=== PATIENT | female | born 1965 | race African-American/Black ===

== ENCOUNTER 2021-08-14 18:23 | Inpatient (IN) ==
[2021-08-14] MEDS ORDERED: LABETALOL 20 MG/4 ML SYRINGE IV STA (19:01)
[2021-08-14] MEDS ORDERED: SODIUM CHLORIDE 0.9% 100 ML IV ONE (19:27)
[2021-08-14] MEDS ORDERED: MORPHINE 2 MG/1 ML SYRINGE ONE (19:44)
[2021-08-14] MEDS ORDERED: ONDANSETRON 4 MG/2 ML VIAL ONE (19:44)
[2021-08-14] MEDS ORDERED: MORPHINE 2 MG/1 ML SYRINGE IV STA (19:47)
[2021-08-14] MEDS ORDERED: ONDANSETRON 4 MG/2 ML VIAL IV STA (19:47)
[2021-08-14 19:50] LABS: Basophils % 0.2 % (0.0-0.8); Eosinophils % 0.2 % (0.00-10.9); Hematocrit 44.2 VOL% (35.7-47.0); Hemoglobin 13.9 GM/DL (12.0-16.0); Immature Granulocytes % 0.6 %; Immature Granulocytes Absolute 0.04 #; Lymphocytes # 0.8 10*3/uL (1.4-4.0); Lymphocytes % 12.1 % (21.3-54.2); Mean Corpuscular HGB Conc 31.4 GM/DL (32-36); Mean Corpuscular Volume 86.8 FL (87-102); Monocytes % 6.2 % (1.7-12.7); Neutrophils % 80.7 % (38.7-73.9); Red Blood Count 5.09 MC/CUMM (3.8-5.5); Red Cell Distribution Width 15.7 % (9.3-17.3); White Blood Count 6.4 T/CUMM (4-12)
[2021-08-14 19:52] LABS: Platelet Count 10 T/CUMM (130-400)
[2021-08-14] MEDS ORDERED: LORazepam 2 MG/1 ML VIAL ONE (19:57)
[2021-08-14] MEDS ORDERED: LORazepam 2 MG/1 ML VIAL IV STA (20:00)
[2021-08-14 20:05] LABS: Alanine Aminotransferase 41 U/L (13-56); Albumin 3.3 G/DL (3.4-5.0); Alkaline Phosphatase 119 U/L (45-117); Aspartate Amino Transferase 33 U/L (0-37); Blood Urea Nitrogen 18 MG/DL (7-18); Calcium 9.3 MG/DL (8.5-10.1); Carbon Dioxide 23 MMOL/L (21-32); Estimated Glom Filtration Rate 48 ML/MIN; Glucose 127 MG/DL (74-106); Osmolality,Calculated 286.1 MOS/KG (273-304); Potassium 3.8 MMOL/L (3.5-5.1); Sodium 142 MMOL/L (136-145); Total Protein 6.6 G/DL (6.4-8.2)
[2021-08-14 20:06] LABS: Band Neutrophils 2 % (0-10); Lymphocytes 12 % (20-55); Segmented Neutrophils 84 % (50-85); Total Cells Counted 100
[2021-08-14 20:07] LABS: Schistocytes Slight; Spherocytes Slight
[2021-08-14 20:08] LABS: Platelet Estimate Decreased
[2021-08-14] MEDS ORDERED: niCARdipine 25 MG/10 ML VIAL IV ONE (20:08)
[2021-08-14 20:09] LABS: Hypochromasia Slight; Microcytosis 1+
[2021-08-14] MEDS: niCARdipine INJ 25 MG in SODIUM CHLORIDE 0.9% 240 ML IV SCH (20:15)
[2021-08-14] MEDS ORDERED: hydrALAZINE 20 MG/1 ML VIAL ONE (20:27)
[2021-08-14] MEDS ORDERED: hydrALAZINE 20 MG/1 ML VIAL IV STA (20:28)
[2021-08-14] MEDS ORDERED: amLODIPine 5 MG TABLET PO STA (20:29)
[2021-08-14] MEDS ORDERED: ONDANSETRON 4 MG/2 ML VIAL IV PRN (20:37)
[2021-08-14] MEDS ORDERED: ALBUTEROL 2.5 MG/3 ML NEB RESP TX PRN (20:37)
[2021-08-14] MEDS ORDERED: MORPHINE 2 MG/1 ML SYRINGE IV PRN (20:37)
[2021-08-14] MEDS ORDERED: NICOTINE 21 MG/24 HR PATCH TRANSDERM PRN (20:37)
[2021-08-14] MEDS ORDERED: SODIUM CHLORIDE 0.9% 1,000 ML IV PRN (20:37)
[2021-08-14] MEDS: PANTOPRAZOLE 40 MG VIAL IV SCH (21:03)
[2021-08-14 21:07] LABS: Basophils % 0.2 % (0.0-0.8); Hematocrit 44.9 VOL% (35.7-47.0); Hemoglobin 13.9 GM/DL (12.0-16.0); Immature Granulocytes % 0.4 %; Immature Granulocytes Absolute 0.04 #; Lymphocytes # 0.6 10*3/uL (1.4-4.0); Lymphocytes % 5.7 % (21.3-54.2); Mean Corpuscular Volume 87.2 FL (87-102); Monocytes % 5.4 % (1.7-12.7); NRBC # 0.02 10*3/uL; Neutrophils % 88.3 % (38.7-73.9); Platelet Count 60 T/CUMM (130-400); Red Blood Count 5.15 MC/CUMM (3.8-5.5); Red Cell Distribution Width 15.7 % (9.3-17.3); White Blood Count 9.7 T/CUMM (4-12)
[2021-08-14 21:20] LABS: Folate 12.16 NG/ML (5.38-24.0); Vitamin B12 1132 PG/ML (211-911)
[2021-08-14 21:22] LABS: Bacteria,Urine Occasional /HPF (Few); Bilirubin,Urine Negative (Negative); Blood, Urine Negative (Negative); Glucose,Urine (UA) 50 mg/dL (Negative); Hyaline Casts,Urine 8 /LPF (0-3); Ketones,Urine 5 mg/dL (Negative); Mucus,Urine Occasional /LPF (Occasional); Nitrite,Urine Negative (Negative); Protein,Urine >=500 MG/DL; RBC,Urine 2 /HPF (0-4); Squamous Epithelial Cell,Urine Occasional /HPF (0-10); Urine Appearance CLEAR (Clear); Urine Color Yellow (Yellow); Urine Specific Gravity 1.017 (1.001-1.035); Urine Urobilinogen < 2.0 EU/DL (0.2-1.0)
[2021-08-14 21:27] LABS: Barbiturates Screen,Urine Negative (Negative); Benzodiazepines Screen,Urine Positive (Negative); Cannabinoid Screen,Urine Positive (Negative); Opiate Screen,Urine Positive (Negative); Phencyclidine Screen,Urine Negative (Negative)
[2021-08-14 21:39] VITALS: BP 167/89
[2021-08-14] MEDS ORDERED: LORazepam 2 MG/1 ML VIAL IV PRN (21:46)
[2021-08-14] MEDS: SODIUM CHLORIDE 0.9% 1,000 ML IV SCH (22:13)
[2021-08-14 22:14] LABS: Sedimentation Rate-Westergren 12 MM/HR (0-30)
[2021-08-14] MEDS ORDERED: LABETALOL 20 MG/4 ML SYRINGE IV ONE (22:18)
[2021-08-14] MEDS ORDERED: ACETAMINOPHEN 650 MG SUPP RECTAL PRN (23:30)
[2021-08-15] MEDS ORDERED: LORazepam 2 MG/1 ML VIAL ONE (00:41)
[2021-08-15] MEDS: niCARdipine INJ 25 MG in SODIUM CHLORIDE 0.9% 240 ML IV SCH ×2 (00:48→21:30)
[2021-08-15 04:46] LABS: Basophils % 0.3 % (0.0-0.8); Hemoglobin 13.4 GM/DL (12.0-16.0); Immature Granulocytes % 0.3 %; Immature Granulocytes Absolute 0.02 #; Lymphocytes # 1.3 10*3/uL (1.4-4.0); Lymphocytes % 17.5 % (21.3-54.2); Mean Corpuscular HGB Conc 30.5 GM/DL (32-36); Monocytes % 13.9 % (1.7-12.7); Platelet Count 50 T/CUMM (130-400); Red Blood Count 4.89 MC/CUMM (3.8-5.5); Red Cell Distribution Width 15.9 % (9.3-17.3); White Blood Count 7.3 T/CUMM (4-12)
[2021-08-15 05:04] LABS: Albumin 3.1 G/DL (3.4-5.0); Calcium 8.9 MG/DL (8.5-10.1); Potassium 3.4 MMOL/L (3.5-5.1); Total Protein 6.4 G/DL (6.4-8.2)
[2021-08-15 05:16] LABS: Hypochromasia 1+; Ovalocytes 1+; Platelet Estimate Decreased
[2021-08-15] MEDS: SODIUM CHLORIDE 0.9% 1,000 ML IV SCH (06:16)
[2021-08-15] MEDS: ACETAMINOPHEN 325 MG TABLET PO PRN ×2 (08:20→21:28)
[2021-08-15] MEDS: POTASSIUM CHLORIDE 20 MEQ TABLET PO PRN ×3 (09:44→14:16)
[2021-08-15] MEDS ORDERED: hydrALAZINE 20 MG/1 ML VIAL IV PRN (11:12)
[2021-08-15] MEDS ORDERED: METOPROLOL SUCCINATE XL 25 MG TABLET PO SCH (11:14)
[2021-08-15] MEDS: amLODIPine 10 MG TABLET PO SCH (11:25)
[2021-08-15] MEDS: ISOSORBIDE MONONITRATE 30 MG TABLET PO SCH (12:11)
[2021-08-15] MEDS: OXYBUTYNIN 5 MG TABLET PO SCH (12:11)
[2021-08-15] MEDS: SERTRALINE 100 MG TABLET PO SCH (12:11)
[2021-08-15] MEDS: GABAPENTIN 600 MG TABLET PO SCH ×2 (14:15→21:29)
[2021-08-15] MEDS: hydrALAZINE 25 MG TABLET PO SCH ×2 (14:15→21:28)
[2021-08-15] MEDS: PANTOPRAZOLE 40 MG VIAL IV SCH (21:29)
[2021-08-16 04:47] LABS: Basophils % 0.5 % (0.0-0.8); Eosinophils # 0.1 10*3/uL (0.0-0.87); Eosinophils % 1.7 % (0.00-10.9); Hematocrit 39.2 VOL% (35.7-47.0); Hemoglobin 12.1 GM/DL (12.0-16.0); Immature Granulocytes % 0.5 %; Immature Granulocytes Absolute 0.02 #; Lymphocytes # 1.2 10*3/uL (1.4-4.0); Lymphocytes % 28.9 % (21.3-54.2); Mean Corpuscular HGB Conc 30.9 GM/DL (32-36); Mean Corpuscular Volume 89.9 FL (87-102); Monocytes % 13.4 % (1.7-12.7); Platelet Count 56 T/CUMM (130-400); Red Blood Count 4.36 MC/CUMM (3.8-5.5); Red Cell Distribution Width 15.8 % (9.3-17.3)
[2021-08-16 05:08] LABS: Calcium 8.5 MG/DL (8.5-10.1); Potassium 4.1 MMOL/L (3.5-5.1)
[2021-08-16 05:31] LABS: Hypochromasia 1+; Microcytosis 1+; Ovalocytes Slight; Platelet Estimate Decreased
[2021-08-16] MEDS: OXYBUTYNIN 5 MG TABLET PO SCH (08:42)
[2021-08-16] MEDS: hydrALAZINE 25 MG TABLET PO SCH ×2 (08:42→14:06)
[2021-08-16] MEDS: amLODIPine 10 MG TABLET PO SCH (08:42)
[2021-08-16] MEDS: SERTRALINE 100 MG TABLET PO SCH (08:42)
[2021-08-16] MEDS: GABAPENTIN 600 MG TABLET PO SCH ×2 (08:43→14:06)
[2021-08-16] MEDS: ISOSORBIDE MONONITRATE 30 MG TABLET PO SCH (08:43)
[2021-08-16] MEDS ORDERED: METOPROLOL SUCCINATE XL 50 MG TABLET PO SCH (09:00)
[2021-08-16] MEDS ORDERED: INFLUENZA VIRUS VACCINE 0.5 ML SYRINGE IM ONE (13:16)
[2021-08-17 09:49] LABS: Hemoglobin A1 (Alkaline) 97.7 % (96.5-98.5); Hemoglobin A2 (Alkaline) 2.3 % (1.5-3.5)
== END 2021-08-16 14:30 | disposition home or self-care (01) | DRG 305 ==
LOC: EDBD → EDUNIT# → N.ED 18:23 → N.EDINP 20:37 → N.ICU 21:18
PROVIDERS: ADMIT Internal Medicine; ATTEND Internal Medicine

== ENCOUNTER 2022-02-22 09:00 | Inpatient (IN) ==
[2022-02-22] MEDS ORDERED: SODIUM CHLORIDE 0.9% 1,000 ML IV STA (09:25)
[2022-02-22] MEDS ORDERED: cefTRIAXone 1,000 MG in SODIUM CHLORIDE 0.9% 100 ML IV STA (09:41)
[2022-02-22 09:55] LABS: Basophils % 0.4 % (0.0-0.8); Eosinophils % 0.4 % (0.00-10.9); Hematocrit 35.5 VOL% (35.7-47.0); Hemoglobin 11.1 GM/DL (12.0-16.0); Immature Granulocytes % 3.4 %; Immature Granulocytes Absolute 0.26 #; Mean Corpuscular HGB Conc 31.3 GM/DL (32-36); Mean Corpuscular Volume 83.9 FL (87-102); Monocytes % 13.2 % (1.7-12.7); Neutrophils % 69.6 % (38.7-73.9); Red Blood Count 4.23 MC/CUMM (3.8-5.5); Red Cell Distribution Width 16.5 % (9.3-17.3); White Blood Count 7.6 T/CUMM (4-12)
[2022-02-22 09:59] LABS: Platelet Count 72 T/CUMM (130-400)
[2022-02-22 10:12] LABS: Platelet Estimate Decreased
[2022-02-22 10:21] LABS: Alanine Aminotransferase 20 U/L (13-56); Albumin 2.5 G/DL (3.4-5.0); Alkaline Phosphatase 88 U/L (45-117); Aspartate Amino Transferase 15 U/L (0-37); Bilirubin,Total < 0.39 MG/DL (0.20-1.00); Blood Urea Nitrogen 25 MG/DL (7-18); Calcium 9.3 MG/DL (8.5-10.1); Carbon Dioxide 23 MMOL/L (21-32); Chloride 105 MMOL/L (98-107); Estimated Glom Filtration Rate 42 ML/MIN; Glucose 103 MG/DL (74-106); Potassium 3.2 MMOL/L (3.5-5.1); Sodium 136 MMOL/L (136-145)
[2022-02-22 10:33] LABS: Bacteria,Urine Occasional /HPF (Few); Mucus,Urine Occasional /LPF (Occasional); RBC,Urine 4 /HPF (0-4); Squamous Epithelial Cell,Urine Occasional /HPF (0-10); Urine Appearance Clear (Clear); Urine Color Yellow (Yellow)
[2022-02-22 10:34] LABS: Bilirubin,Urine Small mg/dL (Negative); Blood, Urine Trace mg/dL (Negative); Glucose,Urine (UA) Negative (Negative); Ketones,Urine Negative (Negative); Nitrite,Urine Negative (Negative); Protein,Urine >=300 mg/dL (Negative); Urine Urobilinogen 0.2 eU/dL (<2.0)
[2022-02-22] MEDS ORDERED: GLUCAGON 1 MG VIAL IM PRN (14:41)
[2022-02-22] MEDS ORDERED: DEXTROSE 10% 250 ML BAG IV PRN (14:41)
[2022-02-22] MEDS ORDERED: ACETAMINOPHEN 325 MG TABLET PO PRN (14:41)
[2022-02-22] MEDS ORDERED: ONDANSETRON 4 MG/2 ML VIAL IV PRN (14:41)
[2022-02-22] MEDS ORDERED: SODIUM CHLORIDE 0.9% 1,100 ML IV ONE (14:51)
[2022-02-22] MEDS: SODIUM CHLORIDE 0.9% 1,000 ML IV SCH ×2 (14:55→20:03)
[2022-02-22] MEDS: PIPERACILLIN/TAZOBACTAM 3,375 MG in SODIUM CHLORIDE 0.9% 100 ML IV SCH ×2 (15:37→23:11)
[2022-02-22] MEDS: HYDROCORTISONE 100 MG VIAL IV SCH ×2 (15:59→20:03)
[2022-02-22] MEDS: INSULIN LISPRO 100 UNIT/ML SUBCUT SCH ×2 (17:30→21:48)
[2022-02-22] MEDS: ASPIRIN 325 MG TABLET PO SCH (20:03)
[2022-02-22] MEDS: GABAPENTIN 300 MG CAPSULE PO SCH (20:03)
[2022-02-22] MEDS: levETIRAcetam 500 MG TABLET PO SCH (20:03)
[2022-02-22] MEDS ORDERED: ENOXAPARIN 80 MG/0.8 ML SYRINGE SUBCUT ONE (22:27)
[2022-02-22] MEDS ORDERED: NITROGLYCERIN SL 0.4 MG TABLET SL PRN (22:28)
[2022-02-23] MEDS: SODIUM CHLORIDE 0.9% 1,000 ML IV SCH ×2 (00:05→06:15)
[2022-02-23 04:38] LABS: Basophils % 0.3 % (0.0-0.8); Hematocrit 32.6 VOL% (35.7-47.0); Immature Granulocytes Absolute 0.32 #; Lymphocytes # 0.7 10*3/uL (1.4-4.0); Lymphocytes % 10.8 % (21.3-54.2); Mean Corpuscular HGB Conc 30.7 GM/DL (32-36); Mean Corpuscular Volume 86.7 FL (87-102); Monocytes # 0.6 10*3/uL (0.11-0.8); Monocytes % 9.8 % (1.7-12.7); Neutrophils % 74.1 % (38.7-73.9); Platelet Count 69 T/CUMM (130-400); Red Blood Count 3.76 MC/CUMM (3.8-5.5); Red Cell Distribution Width 16.6 % (9.3-17.3); White Blood Count 6.4 T/CUMM (4-12)
[2022-02-23 05:08] LABS: Alanine Aminotransferase 17 U/L (13-56); Albumin 2.1 G/DL (3.4-5.0); Alkaline Phosphatase 73 U/L (45-117); Aspartate Amino Transferase 17 U/L (0-37); Bilirubin,Total < 0.39 MG/DL (0.20-1.00); Blood Urea Nitrogen 24 MG/DL (7-18); Calcium 9.2 MG/DL (8.5-10.1); Carbon Dioxide 16 MMOL/L (21-32); Chloride 110 MMOL/L (98-107); Estimated Glom Filtration Rate 40 ML/MIN; Glucose 138 MG/DL (74-106); Osmolality,Calculated 278.8 MOS/KG (273-304); Potassium 3.8 MMOL/L (3.5-5.1); Sodium 137 MMOL/L (136-145)
[2022-02-23] MEDS: PIPERACILLIN/TAZOBACTAM 3,375 MG in SODIUM CHLORIDE 0.9% 100 ML IV SCH ×3 (06:15→23:22)
[2022-02-23] MEDS: PANTOPRAZOLE 40 MG VIAL IV SCH (06:15)
[2022-02-23] MEDS: INSULIN LISPRO 100 UNIT/ML SUBCUT SCH ×4 (08:08→22:34)
[2022-02-23] MEDS: HYDROCORTISONE 100 MG VIAL IV SCH ×2 (08:43→20:58)
[2022-02-23] MEDS: ASPIRIN 325 MG TABLET PO SCH (08:44)
[2022-02-23] MEDS: SERTRALINE 100 MG TABLET PO SCH (08:44)
[2022-02-23] MEDS: levETIRAcetam 500 MG TABLET PO SCH ×2 (08:44→20:58)
[2022-02-23] MEDS ORDERED: INDOCYANINE GREEN 25 MG VIAL IV ONE (09:02)
[2022-02-23] MEDS: GABAPENTIN 300 MG CAPSULE PO SCH ×3 (09:37→20:58)
[2022-02-23] MEDS: ELTROMBOPAG 75 MG PO SCH (09:37)
[2022-02-23 10:25] LABS: INR 1.2; Partial Thromboplastin Time 37.4 SECS (23.8-32.1)
[2022-02-23] MEDS: SODIUM BICARB INJ 150 MEQ in STERILE WATER INJ 850 ML IV SCH ×2 (13:06→22:34)
[2022-02-24 05:11] LABS: Basophils % 0.3 % (0.0-0.8); Eosinophils % 0.2 % (0.00-10.9); Hematocrit 29.2 VOL% (35.7-47.0); Immature Granulocytes % 8.8 %; Immature Granulocytes Absolute 0.52 #; Lymphocytes # 0.7 10*3/uL (1.4-4.0); Lymphocytes % 11.9 % (21.3-54.2); Mean Corpuscular HGB Conc 30.8 GM/DL (32-36); Mean Corpuscular Volume 85.1 FL (87-102); Monocytes # 0.6 10*3/uL (0.11-0.8); Monocytes % 10.5 % (1.7-12.7); Neutrophils % 68.3 % (38.7-73.9); Platelet Count 113 T/CUMM (130-400); Red Blood Count 3.43 MC/CUMM (3.8-5.5); Red Cell Distribution Width 16.8 % (9.3-17.3); White Blood Count 5.9 T/CUMM (4-12)
[2022-02-24 05:23] LABS: Calcium 8.8 MG/DL (8.5-10.1); Potassium 3.4 MMOL/L (3.5-5.1)
[2022-02-24 05:33] LABS: Band Neutrophils 2 % (0-10); Hypersegmented Neutrophil SLIGHT; Lymphocytes 13 % (20-55); Microcytosis 1+; Myelocytes 2 %; Total Cells Counted 100
[2022-02-24 05:34] LABS: Hypochromia Slight; Ovalocytes Few; Platelet Estimate Decreased
[2022-02-24] MEDS: PANTOPRAZOLE 40 MG VIAL IV SCH (06:01)
[2022-02-24] MEDS: PIPERACILLIN/TAZOBACTAM 3,375 MG in SODIUM CHLORIDE 0.9% 100 ML IV SCH ×3 (06:01→23:59)
[2022-02-24] MEDS: INSULIN LISPRO 100 UNIT/ML SUBCUT SCH ×4 (07:06→21:11)
[2022-02-24] MEDS: SODIUM BICARB INJ 150 MEQ in STERILE WATER INJ 850 ML IV SCH ×2 (09:24→21:10)
[2022-02-24] MEDS: ELTROMBOPAG 75 MG PO SCH (09:26)
[2022-02-24] MEDS: GABAPENTIN 300 MG CAPSULE PO SCH ×3 (09:27→21:07)
[2022-02-24] MEDS: levETIRAcetam 500 MG TABLET PO SCH ×2 (11:23→21:07)
[2022-02-24] MEDS: ASPIRIN 325 MG TABLET PO SCH (11:24)
[2022-02-24] MEDS: HYDROCORTISONE 100 MG VIAL IV SCH (11:24)
[2022-02-24] MEDS: SERTRALINE 100 MG TABLET PO SCH (13:15)
[2022-02-24] MEDS: ATORVASTATIN 80 MG TABLET PO SCH (13:18)
[2022-02-24] MEDS: amLODIPine 10 MG TABLET PO SCH (13:18)
[2022-02-24] MEDS: carvediloL 12.5 MG TABLET PO SCH (16:44)
[2022-02-24] MEDS: HYDROCORTISONE 10 MG TABLET PO SCH (21:07)
[2022-02-25 05:29] LABS: Basophils % 0.4 % (0.0-0.8); Eosinophils # 0.1 10*3/uL (0.0-0.87); Eosinophils % 0.7 % (0.00-10.9); Hematocrit 29.6 VOL% (35.7-47.0); Hemoglobin 9.4 GM/DL (12.0-16.0); Immature Granulocytes % 10.4 %; Immature Granulocytes Absolute 0.72 #; Lymphocytes # 0.9 10*3/uL (1.4-4.0); Lymphocytes % 12.8 % (21.3-54.2); Mean Corpuscular HGB Conc 31.8 GM/DL (32-36); Mean Corpuscular Volume 84.3 FL (87-102); Mean Platelet Volume 12.1 FL (9.6-12.0); Monocytes # 0.6 10*3/uL (0.11-0.8); Neutrophils % 66.7 % (38.7-73.9); Platelet Count 119 T/CUMM (130-400); Red Blood Count 3.51 MC/CUMM (3.8-5.5); Red Cell Distribution Width 16.7 % (9.3-17.3); White Blood Count 6.9 T/CUMM (4-12)
[2022-02-25] MEDS: PANTOPRAZOLE 40 MG VIAL IV SCH (05:49)
[2022-02-25 05:51] LABS: Calcium 9.1 MG/DL (8.5-10.1); Osmolality,Calculated 280.4 MOS/KG (273-304); Potassium 3.4 MMOL/L (3.5-5.1)
[2022-02-25] MEDS ORDERED: INDOCYANINE GREEN 25 MG VIAL IV ONE (06:00)
[2022-02-25 06:04] LABS: Band Neutrophils 1 % (0-10); Lymphocytes 12 % (20-55); Metamyelocytes 3 %; Total Cells Counted 100
[2022-02-25 06:05] LABS: Hypersegmented Neutrophil SLIGHT; Hypochromia Slight; Microcytosis 1+; Ovalocytes Slight
[2022-02-25 06:06] LABS: Platelet Estimate Adequate; Tear Drop Cells Slight
[2022-02-25] MEDS: PIPERACILLIN/TAZOBACTAM 3,375 MG in SODIUM CHLORIDE 0.9% 100 ML IV SCH ×3 (07:30→23:16)
[2022-02-25] MEDS: HYDROCORTISONE 10 MG TABLET PO SCH ×2 (10:10→21:25)
[2022-02-25] MEDS: INSULIN LISPRO 100 UNIT/ML SUBCUT SCH ×4 (10:10→21:26)
[2022-02-25] MEDS: carvediloL 12.5 MG TABLET PO SCH ×2 (10:10→16:13)
[2022-02-25] MEDS: ASPIRIN 325 MG TABLET PO SCH (10:10)
[2022-02-25] MEDS: levETIRAcetam 500 MG TABLET PO SCH ×3 (10:11→21:25)
[2022-02-25] MEDS: ATORVASTATIN 80 MG TABLET PO SCH (10:11)
[2022-02-25] MEDS: GABAPENTIN 300 MG CAPSULE PO SCH ×3 (10:11→21:25)
[2022-02-25] MEDS: ELTROMBOPAG 75 MG PO SCH (10:11)
[2022-02-25] MEDS: amLODIPine 10 MG TABLET PO SCH (10:12)
[2022-02-25] MEDS: SERTRALINE 100 MG TABLET PO SCH (10:12)
[2022-02-25] MEDS: POTASSIUM CHLORIDE INJ 10 MEQ in SODIUM CHLORIDE 0.9% 1,000 ML IV SCH (10:40)
[2022-02-25] MEDS ORDERED: LIDOCAINE 1%/EPI INJ 20 ML VIAL ONE (12:36)
[2022-02-25] MEDS ORDERED: BUPIVACAINE MPF 0.25% 30 ML VIAL ONE (12:36)
[2022-02-25] MEDS ORDERED: TISSUE ADHESIVE 1 EACH APPLICATOR TOP ONE (12:36)
[2022-02-25] MEDS ORDERED: fentaNYL 100 MCG/2 ML VIAL ONE ×2 (12:42→14:08)
[2022-02-25] MEDS ORDERED: propofoL 200 MG/20 ML VIAL IV ONE (12:43)
[2022-02-25] MEDS ORDERED: MIDAZOLAM 2 MG/2 ML VIAL ONE (12:43)
[2022-02-25] MEDS ORDERED: ROCURONIUM 50 MG/5 ML VIAL IV ONE (12:43)
[2022-02-25] MEDS ORDERED: LIDOCAINE 2% 5 ML VIAL ONE (12:43)
[2022-02-25] MEDS ORDERED: LACTATED RINGERS 1,000 ML IV SCH (13:00)
[2022-02-25] MEDS ORDERED: levETIRAcetam 500 MG TABLET PO ONE (13:12)
[2022-02-25] MEDS ORDERED: ONDANSETRON 4 MG/2 ML VIAL ONE (13:53)
[2022-02-25] MEDS ORDERED: DEXAMETHASONE 4 MG/1 ML VIAL ONE (13:54)
[2022-02-25] MEDS ORDERED: NEOSTIGMINE 10 MG/10 ML VIAL ONE (13:57)
[2022-02-25] MEDS ORDERED: GLYCOPYRROLATE 0.4 MG/2 ML VIAL ONE (13:57)
[2022-02-25] MEDS ORDERED: hydrALAZINE 20 MG/1 ML VIAL ONE (14:15)
[2022-02-25] MEDS ORDERED: SODIUM CHLORIDE 0.9% 1,000 ML IV ONE (14:43)
[2022-02-25] MEDS ORDERED: SEVOFLURANE 1 UNIT/15 MINUTE INH ONE (14:44)
[2022-02-25] MEDS ORDERED: ONDANSETRON 4 MG/2 ML VIAL IV PRN (15:07)
[2022-02-25] MEDS ORDERED: HYDROmorphone 1 MG/1 ML SYRINGE ONE (15:08)
[2022-02-25] MEDS: HYDROmorphone 1 MG/1 ML SYRINGE IV PRN ×2 (15:10→15:26)
[2022-02-25 16:09] LABS: Basophils # 0.1 10*3/uL (0.0-0.2); Basophils % 0.5 % (0.0-0.8); Eosinophils # 0.1 10*3/uL (0.0-0.87); Eosinophils % 0.4 % (0.00-10.9); Hematocrit 32.1 VOL% (35.7-47.0); Hemoglobin 9.9 GM/DL (12.0-16.0); Immature Granulocytes % 8.4 %; Lymphocytes # 0.9 10*3/uL (1.4-4.0); Lymphocytes % 7.3 % (21.3-54.2); Mean Corpuscular HGB Conc 30.8 GM/DL (32-36); Mean Corpuscular Volume 85.4 FL (87-102); Mean Platelet Volume 12.8 FL (9.6-12.0); Monocytes # 0.6 10*3/uL (0.11-0.8); Monocytes % 5.2 % (1.7-12.7); Neutrophils % 78.2 % (38.7-73.9); Platelet Count 143 T/CUMM (130-400); Red Blood Count 3.76 MC/CUMM (3.8-5.5); Red Cell Distribution Width 16.9 % (9.3-17.3); White Blood Count 11.8 T/CUMM (4-12)
[2022-02-25 16:27] LABS: Calcium 8.9 MG/DL (8.5-10.1); Potassium 2.6 MMOL/L (3.5-5.1)
[2022-02-25 16:44] LABS: Lymphocytes 8 % (20-55); Metamyelocytes 2 %; Myelocytes 3 %; Promyelocytes 1 %; Total Cells Counted 100
[2022-02-25 16:45] LABS: Platelet Estimate Adequate
[2022-02-25 16:46] LABS: Hypochromia 1+
[2022-02-25] MEDS: SODIUM BICARB INJ 150 MEQ in STERILE WATER INJ 850 ML IV SCH (16:50)
[2022-02-25] MEDS: ALPRAZolam 0.25 MG TABLET PO PRN (21:25)
[2022-02-25] MEDS: POTASSIUM CHLORIDE RIDER 10 MEQ/100 ML PREMIX IV SCH (23:16)
[2022-02-26] MEDS: POTASSIUM CHLORIDE RIDER 10 MEQ/100 ML PREMIX IV SCH ×3 (00:19→02:24)
[2022-02-26] MEDS: POTASSIUM CHLORIDE INJ 10 MEQ in SODIUM CHLORIDE 0.9% 1,000 ML IV SCH (03:31)
[2022-02-26] MEDS: SODIUM BICARB INJ 150 MEQ in STERILE WATER INJ 850 ML IV SCH (03:40)
[2022-02-26] MEDS: PANTOPRAZOLE 40 MG VIAL IV SCH (05:40)
[2022-02-26 06:13] LABS: Basophils % 0.2 % (0.0-0.8); Eosinophils % 0.2 % (0.00-10.9); Hematocrit 26.8 VOL% (35.7-47.0); Hemoglobin 8.5 GM/DL (12.0-16.0); Immature Granulocytes Absolute 0.51 #; Lymphocytes # 0.7 10*3/uL (1.4-4.0); Lymphocytes % 6.9 % (21.3-54.2); Mean Corpuscular HGB Conc 31.7 GM/DL (32-36); Mean Corpuscular Volume 84.5 FL (87-102); Mean Platelet Volume 12.4 FL (9.6-12.0); Monocytes # 0.5 10*3/uL (0.11-0.8); Monocytes % 5.1 % (1.7-12.7); Neutrophils % 82.6 % (38.7-73.9); Platelet Count 115 T/CUMM (130-400); Red Blood Count 3.17 MC/CUMM (3.8-5.5); Red Cell Distribution Width 16.6 % (9.3-17.3); White Blood Count 10.3 T/CUMM (4-12)
[2022-02-26] MEDS ORDERED: POTASSIUM CHLORIDE 20 MEQ TABLET PO PRN (06:25)
[2022-02-26 06:28] LABS: Calcium 8.7 MG/DL (8.5-10.1); Osmolality,Calculated 280.3 MOS/KG (273-304); Potassium 3.1 MMOL/L (3.5-5.1)
[2022-02-26 06:42] LABS: Hypochromia Slight
[2022-02-26] MEDS ORDERED: MAGNESIUM SULF RIDER 4 GM/100 ML PREMIX IV PRN (07:00)
[2022-02-26] MEDS ORDERED: MAGNESIUM SULF RIDER 2 GM/50 ML PREMIX IV PRN (07:00)
[2022-02-26] MEDS: PIPERACILLIN/TAZOBACTAM 3,375 MG in SODIUM CHLORIDE 0.9% 100 ML IV SCH ×3 (07:36→22:38)
[2022-02-26] MEDS: INSULIN LISPRO 100 UNIT/ML SUBCUT SCH ×4 (08:36→20:19)
[2022-02-26] MEDS ORDERED: POTASSIUM CHLORIDE 20 MEQ TABLET PO ONE (09:00)
[2022-02-26] MEDS ORDERED: MAGNESIUM OXIDE 400 MG TABLET PO ONE (09:00)
[2022-02-26] MEDS: ASPIRIN 325 MG TABLET PO SCH (09:42)
[2022-02-26] MEDS: SERTRALINE 100 MG TABLET PO SCH (09:42)
[2022-02-26] MEDS: GABAPENTIN 300 MG CAPSULE PO SCH ×3 (09:43→21:08)
[2022-02-26] MEDS: levETIRAcetam 500 MG TABLET PO SCH ×2 (09:43→21:09)
[2022-02-26] MEDS: ATORVASTATIN 80 MG TABLET PO SCH (09:43)
[2022-02-26] MEDS: HYDROCORTISONE 10 MG TABLET PO SCH ×2 (09:43→21:08)
[2022-02-26] MEDS: carvediloL 12.5 MG TABLET PO SCH ×2 (09:44→17:26)
[2022-02-26] MEDS: amLODIPine 10 MG TABLET PO SCH (09:44)
[2022-02-26] MEDS: ELTROMBOPAG 75 MG PO SCH (10:31)
[2022-02-26 11:52] LABS: Basophils % 0.2 % (0.0-0.8); Eosinophils # 0.1 10*3/uL (0.0-0.87); Eosinophils % 0.5 % (0.00-10.9); Hematocrit 27.1 VOL% (35.7-47.0); Hemoglobin 8.5 GM/DL (12.0-16.0); Immature Granulocytes % 4.7 %; Immature Granulocytes Absolute 0.51 #; Lymphocytes # 0.9 10*3/uL (1.4-4.0); Lymphocytes % 8.1 % (21.3-54.2); Mean Corpuscular HGB Conc 31.4 GM/DL (32-36); Mean Corpuscular Volume 84.4 FL (87-102); Mean Platelet Volume 12.5 FL (9.6-12.0); Monocytes # 0.6 10*3/uL (0.11-0.8); Monocytes % 5.6 % (1.7-12.7); Neutrophils % 80.9 % (38.7-73.9); Platelet Count 107 T/CUMM (130-400); Red Blood Count 3.21 MC/CUMM (3.8-5.5); Red Cell Distribution Width 16.6 % (9.3-17.3); White Blood Count 10.8 T/CUMM (4-12)
[2022-02-26 12:26] LABS: Lymphocytes 15 % (20-55); Nucleated Red Blood Cells 2 (0-5); Promyelocytes 1 %; Total Cells Counted 100
[2022-02-26 12:28] LABS: Platelet Estimate Decreased
[2022-02-26] MEDS: ALPRAZolam 0.25 MG TABLET PO PRN (21:08)
[2022-02-27] MEDS: PANTOPRAZOLE 40 MG VIAL IV SCH (05:41)
[2022-02-27] MEDS: PIPERACILLIN/TAZOBACTAM 3,375 MG in SODIUM CHLORIDE 0.9% 100 ML IV SCH (07:43)
[2022-02-27] MEDS: INSULIN LISPRO 100 UNIT/ML SUBCUT SCH ×2 (08:23→11:46)
[2022-02-27] MEDS: levETIRAcetam 500 MG TABLET PO SCH (09:19)
[2022-02-27] MEDS: HYDROCORTISONE 10 MG TABLET PO SCH (09:19)
[2022-02-27] MEDS: GABAPENTIN 300 MG CAPSULE PO SCH (09:19)
[2022-02-27] MEDS: SERTRALINE 100 MG TABLET PO SCH (09:19)
[2022-02-27] MEDS: carvediloL 12.5 MG TABLET PO SCH (09:19)
[2022-02-27] MEDS: ATORVASTATIN 80 MG TABLET PO SCH (09:19)
[2022-02-27] MEDS: ASPIRIN 325 MG TABLET PO SCH (09:19)
[2022-02-27] MEDS: amLODIPine 10 MG TABLET PO SCH (09:19)
[2022-02-27] MEDS: ELTROMBOPAG 75 MG PO SCH (09:21)
[2022-02-27 09:31] LABS: Mean Corpuscular HGB Conc 31.4 GM/DL (32-36)
[2022-02-27 09:40] LABS: Basophils % 0.3 % (0.0-0.8); Eosinophils # 0.1 10*3/uL (0.0-0.87); Eosinophils % 0.9 % (0.00-10.9); Hematocrit 27.4 VOL% (35.7-47.0); Hemoglobin 8.6 GM/DL (12.0-16.0); Immature Granulocytes % 4.9 %; Immature Granulocytes Absolute 0.48 #; Lymphocytes # 0.9 10*3/uL (1.4-4.0); Lymphocytes % 8.7 % (21.3-54.2); Mean Corpuscular Volume 85.1 FL (87-102); Monocytes # 0.5 10*3/uL (0.11-0.8); Monocytes % 5.5 % (1.7-12.7); NRBC # 0.02 10*3/uL; Neutrophils % 79.7 % (38.7-73.9); Red Blood Count 3.22 MC/CUMM (3.8-5.5); Red Cell Distribution Width 16.9 % (9.3-17.3); White Blood Count 9.8 T/CUMM (4-12)
[2022-02-27 09:42] LABS: Calcium 8.5 MG/DL (8.5-10.1); Osmolality,Calculated 278.5 MOS/KG (273-304); Potassium 3.2 MMOL/L (3.5-5.1)
[2022-02-27 09:43] LABS: Platelet Count 96 T/CUMM (130-400)
[2022-02-27 09:48] LABS: Platelet Estimate Decreased
[2022-02-27] MEDS ORDERED: POTASSIUM CHLORIDE 20 MEQ TABLET PO ONE (11:29)
[2022-02-27 11:58] VITALS: BP 125/66
== END 2022-02-27 13:00 | disposition home or self-care (01) | DRG 417 ==
LOC: EDUNIT# → EDBD → N.ED 09:00 → SUATTDRO 14:41 → N.EDINP 14:41 → N.3E 16:44
PROVIDERS: ADMIT Internal Medicine; ATTEND Internal Medicine